=== PATIENT | male | born 1975 | race Caucasian/White ===

== ENCOUNTER 2021-10-05 07:55 | Emergency (ER) | payer MEDICAID ==
[~2021-10-05] VITALS: Ht 188 cm; Wt 147.4 kg
--- NOTE | 2021-10-05 08:12 | NUR ---
patient came for med refill off meds x 2 days, visiting from [place]. On room air, breathing evenly and unlabored. Kept comfortable, will continue to monitor accordingly.
[2021-10-05] MEDS ORDERED: LISINOPRIL (10MG) 10 MG TABLET PO STA (08:15)
[2021-10-05] MEDS ORDERED: LISI10TA29 PO (08:20)
[2021-10-05] MEDS ORDERED: AMLO-213 PO (08:20)
[2021-10-05] MEDS ORDERED: HYDR50TA61 PO (08:20)
[2021-10-05] MEDS ORDERED: CYCL5TAB PO (08:20)
[2021-10-05] MEDS ORDERED: DULO30CA2 PO (08:20)
[2021-10-05] MEDS ORDERED: CYCLOBENZAPRINE 10 MG TABLET ONE (08:24)
[2021-10-05] MEDS ORDERED: LISINOPRIL (20MG) 20 MG TABLET ONE (08:25)
[2021-10-05] MEDS ORDERED: AMLODIPINE BESYLATE 10 MG TABLET ONE (08:25)
[2021-10-05] MEDS ORDERED: hydrOXYzine 10 MG TABLET PO ONE (08:30)
[2021-10-05] MEDS ORDERED: CYCLOBENZAPRINE 10 MG TABLET PO ONE (08:30)
[2021-10-05] MEDS ORDERED: AMLODIPINE BESYLATE 5 MG TABLET PO ONE (08:30)
[2021-10-05 08:32] VITALS: BP 143/97
--- NOTE | 2021-10-05 14:21 | NUR ---
SS consult requested for homelessness. The pt. is a 46 year old male. SW met with pt. at bedside. The pt. is alert & oriented x 4 and makes good eye contact. The pt. denies SI/HI and denies hallucinations. The pt. appears well-groomed and remains calm & cooperative throughout interview. The pt. states that he is originally from [place] and recently moved to [place] where he is currently experiencing homelessness. Pt. was Requesting resources for hot meals, showers and how to refill his medications. Pt. states he has presumptive MCL but cannot afford a copay. SW provided patient assistance programs for help with medication coverage and informed him Camila Gagnon [facility] [[address] [place] [address] ] is a good resource. SW provided bus directions and TAP card to get to [facility] [[address], [place] [address] ]. Pt. stated he will go to [facility] when ready for discharge. KEON provided the following homeless/ senior living resources and pt. thanked SW. Pt. refused to sign homeless waiver. Year-round shelters: [facility] [address] [place] [address] ; [facility] [address] [place] [address]; [facility] [id number] [facility]. [facility] [address] Hygiene: [facility]: [address] [address] Tysone. [place] ; [facility] [address] [facility] ; [facility] [address] [facility] Lindsay Nella . Food Resources: [facility] at [facility]- [address]. [place]; Meet Each Need with Dignity ([facility]) [address] [facility] [address] [facility]; [facility] [address] [place] Brie Yang. Mental Health resources provided: [facility] [address] [place], [place] [id number] ; [facility] [address], [place] [address] ; [facility] [address] [place] [address] ; [facility] [address] [place], [place] [id number] Healthcare Clinics: [facility] [address] [facility], [address] [place]. [place] ; [facility] [address] [facility] [address] [place] [address]; [facility] [address] [place] [address] [phone] Counseling--Outpatient [facility] [address] [facility], [place] [address] (Specializes in in-depth psychotherapy for emotional distress: anxiety, depression, interpersonal conflicts, life transitions, childhood abuse) [facility] [address] [place] [address] (Assist with solving problem marital difficulties, separation & divorce, aging parents, & grief, chronic & terminal illness) [facility] [address] [place] [address] (Deal with loss & grief, anxiety, marital difficulties) Home[facility]Mental Health Services [address] [place] [address] (Provide in-home mental services to people who are incapable of leaving their homes) [facility] Senior Service[facility] [address] [place] [address] [facility] [address] [facility] [place] [address] PSYCHIATRIC OUTPATIENT SERVICES [facility] Partial Hospitalization and Intensive Outpatient Program (Managed Care and [place] Only)[address] Alistair Velásquez. [facility] [phone] [facility] Partial Hospitalization and Outpatient [id number] [place], [place] [phone] LUKE SMILEY [facility] [place] Iys[address]1954 [address] [facility]. [address] [place], [place] [phone] [facility] Partial Hospitalization and Outpatient [id number] Emeliwesley [facility] [place], [phone] Substance Abuse resources provided included: [facility] Substance Abuse Self-Helpline ([facility]) ; [facility] [address] [facility]. [place] [address] ; [facility] [place] [facility] [address] [facility] [address] ; [facility] [address] [facility] [address] ; [facility] 400 [facility] [id number] ; [facility] 49[address] [facility] [address] ; [facility] [address] [facility] [address] ; [facility] Substance Abuse Helpline([facility] ; [facility] ; [facility]; [facility] [place]; [facility] Luke Smiley; [facility]; [place]; [facility] [place]; [facility] [place]; Alcoholics Anonymous -[facility]; [place] ; Marijuana Anonymous -[facility]; Narcotics Anonymous [email or web address];
== END 2021-10-05 10:05 | disposition home or self-care (01) ==
LOC: ER 08:00
DX: I10 Essential (primary) hypertension (principal); G62.9 Polyneuropathy, unspecified; Z76.0 Encounter for issue of repeat prescription; F32.A Depression, unspecified; F41.9 Anxiety disorder, unspecified; Z79.899 Other long term (current) drug therapy
CPT/HCPCS: 99284; Q0177

== ENCOUNTER 2021-10-25 20:35 | Emergency (ER) | payer MEDICAID ==
[~2021-10-25] VITALS: Ht 185.4 cm; Wt 147.4 kg
[~2021-10-25 20:35] MED LIST: AMLO-213 PO; CYCL5TAB PO; DULO30CA2 PO; HYDR50TA61 PO; LISI10TA29 PO
[2021-10-25 21:30] VITALS: BP 117/73
--- NOTE | 2021-10-25 21:30 | NUR ---
BIBS C/O RT EAR PAIN X 2 DAYS. AMBULATORY, SEATED ON CHAIR.
[2021-10-25] MEDS ORDERED: KETOROLAC TROMETHAMINE INJ 30 MG/ML VIAL IM ONE (22:00)
[2021-10-25] MEDS ORDERED: ACETAMINOPHEN W/ CODEINE#3 1 EA TABLET PO ONE (22:00)
[2021-10-25] MEDS ORDERED: NEOM/POLY B SULF/HC OTIC SUSP 10 ML BOTTLE OT ONE (22:00)
[2021-10-25] MEDS ORDERED: KETOROLAC TROMETHAMINE 15 MG/ML VIAL ONE (22:12)
[2021-10-25] MEDS ORDERED: ACETAMINOPHEN W/ CODEINE#3 1 EA TABLET ONE (22:13)
[2021-10-25] MEDS ORDERED: IBUP-1955 PO (22:24)
[2021-10-25] MEDS ORDERED: NEOM10DR11 RIGHT EAR (22:24)
--- NOTE | 2021-10-25 22:30 | NUR ---
Patient discharged to home in stable condition. Written and verbal after care instructions given. Patient verbalizes understanding of instruction.
== END 2021-10-25 22:30 | disposition home or self-care (01) ==
LOC: ER 20:38
DX: H60.501 Unspecified acute noninfective otitis externa, right ear (principal); I10 Essential (primary) hypertension; F32.A Depression, unspecified; F41.9 Anxiety disorder, unspecified; Z60.2 Problems related to living alone; Z79.899 Other long term (current) drug therapy
CPT/HCPCS: 99283; 96372; J1885

== ENCOUNTER 2021-12-14 03:31 | Emergency (ER) | payer MEDICAID ==
[~2021-12-14] VITALS: Ht 190.5 cm; Wt 147.4 kg
[~2021-12-14 03:31] MED LIST changes: +IBUP-1955 PO; +NEOM10DR11 RIGHT EAR
[2021-12-14] MEDS ORDERED: KETOROLAC TROMETHAMINE INJ 30 MG/ML VIAL ONE (03:55)
[2021-12-14] MEDS ORDERED: CLINDAMYCIN HCL 150 MG CAPSULE ONE (03:55)
[2021-12-14] MEDS ORDERED: CLIN300C12 PO (04:00)
[2021-12-14] MEDS: KETOROLAC TROMETHAMINE INJ 60 MG/2 ML VIAL IM ONE (04:17)
[2021-12-14] MEDS: CLINDAMYCIN HCL 150 MG CAPSULE PO ONE (04:17)
== END 2021-12-14 04:23 | disposition home or self-care (01) ==
LOC: ER 03:32
DX: L03.116 Cellulitis of left lower limb (principal); L03.115 Cellulitis of right lower limb; F32.A Depression, unspecified; F41.9 Anxiety disorder, unspecified; I10 Essential (primary) hypertension; Z60.2 Problems related to living alone; Z79.899 Other long term (current) drug therapy
CPT/HCPCS: 99283; 96372; J1885

== ENCOUNTER 2022-12-19 22:39 | Emergency (ER) | payer MEDICAID ==
[~2022-12-19] VITALS: Ht 185.4 cm; Wt 140.6 kg
[~2022-12-19 22:39] MED LIST changes: +CLIN300C12 PO
[2022-12-20] MEDS ORDERED: AMLODIPINE BESYLATE 5 MG TABLET PO STA (00:40)
[2022-12-20] MEDS ORDERED: LISINOPRIL (10MG) 10 MG TABLET PO STA (00:40)
[2022-12-20 00:41] VITALS: TEMP 98; O2SAT 94
[2022-12-20] MEDS ORDERED: NABU-141 PO (00:47)
[2022-12-20] MEDS ORDERED: LISI10TA29 PO (00:47)
[2022-12-20] MEDS ORDERED: AMLO-213 PO (00:47)
[2022-12-20] MEDS ORDERED: KETOROLAC TROMETHAMINE INJ 60 MG/2 ML VIAL IM ONE ×2 (00:49→01:00)
[2022-12-20] MEDS ORDERED: AMLODIPINE BESYLATE 10 MG TABLET ONE (00:49)
[2022-12-20] MEDS ORDERED: LISINOPRIL (20MG) 20 MG TABLET ONE (00:50)
[2022-12-20 01:06] VITALS: BP 153/86
== END 2022-12-20 01:27 | disposition home or self-care (01) ==
LOC: ER 22:43
DX: G89.29 Other chronic pain (principal); M25.562 Pain in left knee; Z76.0 Encounter for issue of repeat prescription; I10 Essential (primary) hypertension; F32.A Depression, unspecified; F41.9 Anxiety disorder, unspecified; Z60.2 Problems related to living alone
CPT/HCPCS: 99283; 96372; J1885

== ENCOUNTER 2023-02-05 06:59 | Emergency (ER) | payer MEDICAID ==
[~2023-02-05] VITALS: Ht 185.4 cm; Wt 138.3 kg
[~2023-02-05 06:59] MED LIST changes: +NABU-141 PO
[2023-02-05 08:28] LABS: BASOPHILS % (AUTO) 0.1 % (0.0-2.0); EOSINOPHILS % (AUTO) 0.5 % (0.0-6.0); HEMATOCRIT 40 % (39-51); HEMOGLOBIN 13.4 g/dL (13.5-17.5); LYMPHOCYTES # (AUTO) 0.9 K/uL (0.8-4.8); LYMPHOCYTES % (AUTO) 22.7 % (20.0-44.0); MEAN CORPUSCULAR HEMOGLOBIN 29 PG (26.0-33.0); MEAN CORPUSCULAR HGB CONC 33 g/dl (31.0-36.0); MEAN CORPUSCULAR VOLUME 86 fL (80-96); MONOCYTES # (AUTO) 0.6 K/uL (0.1-1.30); MONOCYTES % (AUTO) 15.1 % (2.0-12.0); NEUTROPHILS # (AUTO) 2.5 K/uL (1.8-8.9); NEUTROPHILS % (AUTO) 61.6 % (43.0-81.0); PLATELET COUNT (AUTO) 177 K/uL (150-450); RED BLOOD CELL COUNT(AUTO) 4.64 MIL/uL (4.5-6.0); RED CELL DISTRIBUTION WIDTH 13.8 % (11.5-15.0)
[2023-02-05 08:36] LABS: CALCIUM, SERUM 7.9 mg/dL (8.5-10.1); CREATININE 0.7 mg/dL (0.6-1.3); POTASSIUM 2.9 mmol/L (3.5-5.1)
[2023-02-05 08:43] LABS: ALBUMIN 2.8 g/dL (3.4-5.0); BILIRUBIN,DIRECT 0.2 mg/dL (0.0-0.2); BILIRUBIN,TOTAL 0.5 mg/dL (0.2-1.0); TOTAL PROTEIN, SERUM 6.2 g/dL (6.4-8.2)
[2023-02-05] MEDS ORDERED: FAMOTIDINE/PF INJ 20 MG/2 ML VIAL IV ONE (09:19)
[2023-02-05] MEDS ORDERED: POTASSIUM CHLORIDE 20 MEQ TAB.PRT.SR PO ONE (09:20)
[2023-02-05] MEDS ORDERED: ONDANSETRON HCL/PF 4 MG/2 ML VIAL ONE (09:21)
[2023-02-05] MEDS: IV NS 0.9% 1,000 ML BAG IV ONE (09:36)
[2023-02-05] MEDS: ONDANSETRON HCL/PF 4 MG/2 ML VIAL IV ONE (09:37)
[2023-02-05] MEDS: FAMOTIDINE/PF INJ 20 MG/2 ML VIAL IV ONE (09:37)
[2023-02-05] MEDS: POTASSIUM CHLORIDE 20 MEQ TAB.PRT.SR PO ONE (09:38)
[2023-02-05] MEDS ORDERED: ONDA4TAB5 PO (11:31)
[2023-02-05 12:26] VITALS: BP 142/90; TEMP 98; O2SAT 98
== END 2023-02-05 12:27 | disposition home or self-care (01) ==
LOC: ER 07:03
DX: E87.6 Hypokalemia (principal); R05.9 Cough, unspecified; R11.2 Nausea with vomiting, unspecified; I10 Essential (primary) hypertension; F32.A Depression, unspecified; F41.9 Anxiety disorder, unspecified; F17.200 Nicotine dependence, unspecified, uncomplicated; Z20.822 Contact with and (suspected) exposure to COVID-19
CPT/HCPCS: 99284; 96374; 71045; 96375; 87426; 87804 ×2; 85025; 80048; 83690; 80076; 36415; J3490; J2405; J7030; C9803